=== PATIENT | male | born 1990 | race Caucasian/White ===

== ENCOUNTER 2020-11-15 18:00 | Emergency (ER) | payer SELFPAY ==
[2020-11-15 18:02] VITALS: BP 124/78; PULSE 93; RESP 16; TEMP 36.2; O2SAT 98; BMI 28.6
--- NOTE | 2020-11-15 18:25 | RAD_ITS ---
STUDY: X-RAY - LUMBAR SPINE REASON FOR EXAM: Male, 30 years old. Low back pain while playing volleyball, injury TECHNIQUE: 3 view(s) of the lumbar spine were obtained. COMPARISON: None FINDINGS: There is straightening of the normal lumbar lordosis. There is no substantial scoliosis. There is a normal alignment of the vertebrae. Normal vertebral bodies and endplates. Normal disc space heights. There is no demonstrated fracture. The soft tissue structures are unremarkable. RAD/Lumbar Spine 2 or 3 Views IMPRESSION: No demonstrated fracture or spondylolisthesis. Straightening of the normal lumbar lordosis can be associated with muscular spasm. Electronically Signed: Hari Sosa MD ([place]) at 18:58 EDT , Service support ,
--- NOTE | 2020-11-15 18:34 | ED.VIS.BACK ---
HPI History of Present Illness Chief Complaint: Back Informant: patient Narrative Narrative: Patient is a 30-year-old male who presents to the emergency department for low back pain. This started 30 minutes prior to arrival. He states he was playing volleyball whenever he twisted. He felt sudden pain in his low back. He felt some tingling in his feet bilaterally. He did take an Aleve prior to coming in and he feels like his pain is starting to improve. He currently rates the pain as an 8 out of 10. Any movements make it worse. No saddle anesthesia. He has not gone to the bathroom since this started. He denies any abdominal pain. No chest pain or shortness of breath. No fevers or chills. PFSH PFSH Home Medications cyclobenzaprine 10 mg PO TID PRN #20 tablet 11/15/20 [Rx Last Taken Unknown] olanzapine 15 mg PO DAILY 11/15/20 [History Last Taken Unknown] Allergy/AdvReac Type Severity Reaction Status Date / Time No Known Allergies Allergy Verified 11/15/20 18:04 Social History Smoking Status: Current every day smoker tobacco type: cigarettes and smokeless tobacco ROS ROS ED Constitutional Constitutional ED: Denies chills or fever(s) Eyes Eyes: Denies change in vision ENT ENT ED: Denies epistaxis or rhinorrhea Cardiovascular Cardiovascular: Denies chest pain or palpitations Respiratory/Chest Respiratory/Chest: Denies cough, dyspnea or dyspnea on exertion Gastrointestinal Gastrointestinal: Denies abdominal pain, nausea or vomiting Genitourinary Genitourinary ED: Denies dysuria, hematuria or urinary frequency Musculoskeletal Musculoskeletal: Reports back pain; Denies neck pain Integumentary Denies rash Neurologic Neurologic: Denies dizziness, headache(s) or weakness EXAM Physical Exam Const Vital Signs: 11/15/20 18:02 Temperature 97.1 F L Temperature Source Temporal Pulse Rate 93 Respiratory Rate 16 Blood Pressure 124/78 H Blood Pressure Mean 93 Pulse Ox 98 Oxygen Delivery Method Room Air Positive well nourished and well developed General Appearance ED: well developed and NAD HEENT Reports normocephalic and head/scalp atraumatic Eyes PERRL and EOMs intact bilaterally Neck supple General: Negative for tenderness Chest Wall inspection of chest normal Resp normal respiratory effort and clear to auscultation bilaterally Auscultation: Negative for rales, rhonchi or wheezes Cardio regular rate, regular rhythm and no murmurs GI normal to inspection, nondistended, normoactive bowel sounds and non-tender Palpation: soft; Negative for guarding or rebound tenderness present Back/Spine Back/Spine Narrative: Low back pain with diffuse tenderness including paraspinal musculature as well as midline. No step-off sign. Negative straight leg test bilaterally. Neurovascular intact of lower extremities. Extremity normal to inspection General Extremety ED: Negative for edema or tenderness General Extremity: Negative for edema Neuro no sensory deficits noted Sensorium / Orientation: alert Motor Exam: strength 5/5 throughout Psych mental status grossly normal Skin no rashes or lesions noted MDM MDM MDM Narrative Medical decision making narrative: Patient presents to the ED for low back pain after twisting while playing volleyball. Upon arrival to the ED vital signs within normal limits. No red flag symptoms for acute surgical spinal pathology. Will check x-rays of the low back. Patient did take Aleve prior to coming and is starting to feel better at this time. X-rays of the lumbar spine showed straightening but no acute fracture or subluxation. Likely due to muscle spasm. He is given a prescription for Flexeril. Recommend symptomatic treatment otherwise. He can continue to take Tylenol and ibuprofen as needed. Is to follow-up with his PCP. Return precautions are reviewed with him. At this time he is discharged home in stable condition. Radiography Diagnostic Testing: Radiology Impression Lumbar Spine X-Ray 11/15/20 18:25 IMPRESSION: No demonstrated fracture or spondylolisthesis. Straightening of the normal lumbar lordosis can be associated with muscular spasm. Electronically Signed: Hari Sosa MD ([place]) at 18:58 EDT , Service support , Discharge Plan Triage Chief Complaint: Back ED Provider: Red Jung Dx/Rx/DC Orders Clinical Impression: Low back pain Instructions: ED Back Sprain/Strain Prescriptions: New cyclobenzaprine 10 mg tablet 10 mg PO TID PRN (Reason: Muscle Spasm) Qty: 20 RF: 0 No Action olanzapine 5 mg Tablet 15 mg PO DAILY RF: 0 Primary Care Provider: Care Physician,No Primary Referrals: Care Physician,No Primary [Primary Care Provider] - 5-7 Days Disposition Disposition: Home, Self Care Discharge Date/Time: 11/15/20 20:09
== END 2020-11-15 20:09 | disposition home or self-care (01) ==
PROVIDERS: Emergency Provider Emergency Medicine
DX: M54.5 Low back pain (principal); F17.210 Nicotine dependence, cigarettes, uncomplicated; Y93.68 Activity, volleyball (beach) (court); Z79.899 Other long term (current) drug therapy
CPT/HCPCS: 72100; 99282